=== PATIENT | female | born 1950 | race Caucasian/White ===

== ENCOUNTER → 2023-09-28 08:09 | Outpatient (CLI) | payer OTHER, SELFPAY ==
[2023-09-28 09:15] LABS: Add Manual Diff / Slide Review NO; Basophils Absolute Auto 0 /uL (0-100); Basophils Percent Auto 0.9 % (0-2); Eosinophils Absolute Auto 100 /uL (0-450); Eosinophils Percent Auto 2.4 % (2-4); Hematocrit 39.4 % (36-46); Hemoglobin 13.1 g/dL (12.0-16.0); Lymphocytes Absolute Auto 1400 /uL (1100-4500); Lymphocytes Percent Auto 27.6 % (25-40); Mean Corpuscular HGB Conc 33.4 % (30-36); Mean Corpuscular Hemoglobin 28.3 PG (26-34); Mean Corpuscular Volume 84.9 fL (80-100); Monocytes Absolute Auto 400 /uL (0-900); Monocytes Percent Auto 7.2 % (3-14); Neutrophils Absolute Auto 3200 /uL (1500-7000); Neutrophils Percent Auto 61.9 % (50-75); Platelet Count 270 X10^3/uL (150-400); Red Blood Cell Count 4.64 X10^6/uL (4.0-5.2); Red Cell Distribution Width 13.8 % (11.6-14.8); White Blood Cell Count 5.2 X10^3/uL (4.5-11.0)
[2023-09-28 09:22] LABS: Hemoglobin A1C% w Est Avg Glu 5.6 % (4.0-6.0)
[2023-09-28 09:29] LABS: BUN Creatinine Ratio 33.8 (6-22); Blood Urea Nitrogen 23 mg/dL (7-17); Calcium 9.3 mg/dL (8.4-10.2); Carbon Dioxide 30 mmol/L (22-32); Chloride 108 mmol/L (98-107); Estimated Glomerular Filt Rate > 60 mL/min (>60); Glucose 94 mg/dL (80-110); HEMOLYSIS < 15 (0-50); Potassium 4.6 mmol/L (3.4-5.1); Sodium 140 mmol/L (137-145)
[2023-09-28 09:37] LABS: Prealbumin 22.4 mg/dL (17.6-36.0)
[2023-09-28 09:46] LABS: Vitamin D 25 Hydroxy (D3) 17.9 ng/mL (30.0-100.0)
== END ==
PROVIDERS: PCP Nurse Practitioner Family; Referring Provider Orthopaedic Surgery Adult Reconstructive Orthopaedic Surgery; Visit Provider Orthopaedic Surgery Adult Reconstructive Orthopaedic Surgery
DX: R77.0 Abnormality of albumin (principal); Z01.812 Encounter for preprocedural laboratory examination; E55.9 Vitamin D deficiency, unspecified; R73.9 Hyperglycemia, unspecified
CPT/HCPCS: 36415; 80048; 82040; 82306; 83036; 84134; 85025; 93005

== ENCOUNTER 2023-11-01 06:10 | Day surgery (SDC) | payer OTHER, SELFPAY ==
[2023-10-24 09:28] VITALS: BMI 42.3
[2023-11-01] VITALS (11 sets, daily range): BP systolic 105–150; BP diastolic 61–88; PULSE 67–85; RESP 14–18; TEMP 36.1–36.8; O2SAT 95–99; BMI 42.3
--- NOTE | 2023-11-01 06:00 | DI.RAD.S_ITS ---
PROCEDURE: XR KNEE LT 1TO2V INDICATIONS: TKA TECHNIQUE: 2 view(s) of the knee acquired. COMPARISON: None. FINDINGS: Bones: Patient is status post knee joint arthroplasty. Hardware components are in expected positions. Visualized bony structures are intact. Soft tissues: Overlying postoperative changes are noted. IMPRESSION: Expected post-operative appearance of a knee arthroplasty. Dictated by: Yves Page M.D. on 11/01/2023 at 14:32 Approved by: Yves Page M.D. on 11/01/2023 at 14:32
[2023-11-01] MEDS: ACETAMINOPHEN 325 MG TABLET 975 MG PO (06:49)
[2023-11-01] MEDS: LACTATED RINGERS 1,000 ML 42 ML IV ×2 (06:51→09:00)
--- NOTE | 2023-11-01 07:28 | SUR.OPER ---
Supine on padded OR bed. Pillow under head, arms secured on padded armboards <90 degree abduction. Safety belt across torso. Non-operative leg secured with tape over blanket over lower leg. Operative leg secured in DeMayo/Boy/Nathe positioner. Foam padded brace at thigh of operative leg.
--- NOTE | 2023-11-01 07:36 | PM.PREOP ---
Pre-operative Note Interval Note History & Physical reviewed/Exam performed by Physician: Yes Changes to H&P: No
[2023-11-01] MEDS: CEFAZOLIN 2 GM/100 ML PREMIX 100 ML IV ×3 (08:06→23:32)
[2023-11-01] MEDS: TRANEXAMIC ACID 1,000 MG VIAL 2000 MG INJ (08:13)
[2023-11-01] MEDS: ROPIVACAINE/EPI/CLONIDINE/KET 50 ML SYRINGE INJ (09:07)
--- NOTE | 2023-11-01 10:26 | P.OP_ITS ---
Operative Date/Time/Diagnoses Date of procedure: 11/01/23 Pre-op diagnosis: Left knee osteoarthritis Post-op diagnosis: same Procedure & Clinicians Procedure: Left total knee arthroplasty Same procedure as scheduled: Yes Surgeon: Lemuel Goyal Maternity Floor Supervisor: Asha Zendejas Anesthesia Type: Spinal, Sedation, Peripheral nerve block and Local Operative Notes Tourniquet time (min): 68 Procedure in detail: Left Gap-Balanced Foster Persona Medial-Congruent Primary Total Knee Arthroplasty Implants: * Size 7 Cruciate Retaining Femoral Component * Size D Tibial Component with 14 x 30 stem extension * Size 12 Medial Congruent Polyethylene Insert * Unresurfaced Patella Procedure Summary: This 72-year-old female patient has a BMI of 43 but was otherwise medically optimized from a surgical perspective. I discussed the risks of total knee arthroplasty in the setting of a BMI greater than 40 with her in detail. I explained that the elevated BMI does place her at elevated risk of complicatio ns, of particular importance being periprosthetic joint infection. Given recent recommendations from the [place] [employer] and the [place] [employer] however it is now recommended not to restrict otherwise optimized patients with a BMI greater than 40 from elective total knee arthroplasty based simply on their weight alone. Intraoperatively today she had some medial tightness consistent with her significant varus deformity. This improved with a posterior medial release and later in the procedure I was able to remove a very large posteromedial osteophyte which was likely also tenting the capsule improving the balance of the knee in extension further. I took a minimal cut of 2 mm off the tibia given the size of her deformity. The rotation was set at 4? by the gap meat market manager. I utilized a stem extension as well as a incisional wound VAC device and will prescribe cefadroxil postoperatively for a week given her high BMI I in order to attempt to mitigate the risks associated with this for her. Procedure in Detail: This patient was seen preoperatively and evaluated for knee pain which was refractory to numerous nonoperative treatment modalities. Their pain correlated with radiographic changes demonstrating significant degeneration in the knee joint. The risks and benefits of continued nonoperative management versus o perative management were discussed at length and all of the patient?s questions were answered. Additional educational materials providing further details beyond our discussion in clinic were provided via a publicly available patient education video which included the incidence of medical complications associated with total knee arthroplasty, reasons for revision following total knee arthroplasty, and patient satisfaction rates following total knee arthroplasty. That video can be accessed at [email or web address] . With this understanding of the risks inherent to the procedure, the patient elected to move forward with operative management. Following preoperative optimization, the patient was scheduled for surgery. The patient was met in the preoperative holding area the day of the procedure and all questions were answered. The patient?s nares were swabbed with betadine in order to decolonize them from MRSA. Informed consent was signed and the left limb was marked with indelible ink.? The patient was brought back to the operating room where anesthesia was induced. The patient was transferred to the operating table and all bony prominences were padded. The operative site was prepped and draped in the usual sterile fashion. A second prep stick was utilized following drape placement. The incision was mar ked corresponding to the medial aspect of the tibial tubercle and the patella. Ioban was wrapped circumferentially around the knee. Prior to incision, tranexamic acid and cefazolin were administered. Templating images were displayed. A timeout procedure was performed verifying the patient?s identity, medical comorbidities, allergies, relevant medications, anesthesia type and the surgical plan. All present were in agreement. The assistance of a physician clinical services assistant was required for positioning, room setup, soft tissue retraction and wound closure. Without this assistance, the procedure would have been significantly more challenging and time consuming.?? The tourniquet was inflated prior to incision. I made an anterior incision over the knee, dissected through the subcutaneous tissues and identified the lateral border of the VMO. Medial and lateral soft tissue flaps were developed. A medial parapatellar arthrotomy was performed ensuring that adequate capsular tissue would remain for closure at the conclusion of the procedure. The hip was brought into extension and the medial soft tissues were released off the joint line of the tibia. Tissue overlying the distal anterior femur was released to allow for later assessment for anterior notching but left in place. A portion of the retropatellar fat pad was excised while protecting the patellar tendon. The patella was everted. The patella was not resurfaced. Osteophytes were excised and a lateral facetectomy was performed. The patella was released from its everted position.?? I flexed the knee to 90 degrees and placed retractors to allow access to the notch. An opening reamer was used to gain access to the femoral canal and an intramedullary raciel was introduced into the canal. Diaphyseal fit was obtained in order to allow a distal femoral resection at 5 degrees relative to the anatomic axis, thereby aiming to achieve mechanical alignment of the eventual implant. A +1 resection was planned and assessed using an nando wing. I then made the cut using a sagittal saw. This provided additional access to the femoral notch. The ACL and PCL were excised. Retractors were placed on the lateral and medial tibia. I hyperflexed the knee while externally rotating it to sublux the tibia anteriorly. I placed a PCL retractor posteriorly and used this to provide additional anterior subluxation. The remainder of the PCL root was released. An intramedullary reamer was used in the ACL footprint to provide access to the tibial canal. An extramedullary guide was positioned to allow a resection perpendicular to the anatomic and mechanical axes of the tibia, thereby aiming to achieve mechanical alignment of the eventual implant. A +2 resection off the medial tibia was planned and the tibial cutting jig was pinned in place. I evaluated the cut depth, varus-valgus alignment and slope of the planned tibial resection and deemed them satisfactory. I cut the tibia with a sagittal saw while using retractors to protect the MCL, patellar tendon, and posterolateral structures.? The knee was repositioned in extension and the Fuzion soft tissue balancing gauge was introduced. This demonstrated that there was medial tightness. I performed a posterior medial release releasing capsule off of the posterior medial aspect of the tibia. This improved the balance, with it opening to 6 medially and 8 laterally. When 60 pounds of force was applied to the Fuzion device, the extension gap opened to 11 mm. I moved the knee into 90 degrees of flexion, and the Fuzion device was recalibrated by removing a 9 mm naveen to allow assessment of the flexion gap. The Fuzion was placed perpendicular to the resected surface of the tibia and the resected surface of the distal femur. Sixty pounds of traction was applied to match the tension of the extension gap. This externally rotated the femur to for degrees. Pins were placed in the 10 mm holes. The measured resection guide was placed over the pins to allow sizing. Appropriate sizing was determined and a 4-in-1 block was placed. This was double checked using the Fuzion device to ensure that it would open to an equal distance as the extension gap when the same amount of force was applied. The Fuzion block was also used to assess flexion gap symmetry. An nando wing was used to ensure there would be no anterior notching. Retractors were placed to protect the soft tissues during resection. Captured cuts were performed with a sagittal saw for the anterior and posterior femur as well as the corresponding chamfers.? Trial components were placed and the construct was assessed. Range of motion was assessed by ensuring the knee could achieve full extension and assessing maximum passive knee flexion by elevating the femur and allowing the heel to passively fall towards the buttock. Gap symmetry was assessed by stressing the medial and lateral compartments in both extension and flexion. Laxity was assessed in both extension and flexion and the polyethylene trial was adjusted with shims as necessary. Patellar tracking was assessed with knee flexion. Once satisfied with the construct, I moved forward with implant insertion. Lug holes were drilled in the femur and the tibia was prepped ensuring appropriate sizing and rotation relative to the tibial tubercle.?? The bony ends were irrigated and cement was prepared. Portions of the anterior chamfer cut were utilized as cement restrictors in the femur and tibia where intramedullar rods had been utilized. Cement was placed on the entirety of the undersurface of both the tibial and femoral components. Cement was placed onto the dry tibia and pressurized into the cancellous bone. I impacted the tibial component into place. Cement was removed. The tibia was reduced underneath the femur and placed cement onto the dry surface of the resected femur. I placed the femoral component as well as the intended polyethylene trial. Cement was removed from around the femur. I brought the knee into extension and manually pressurized the construct by pushing on the heel while the cement dried. The knee was bathed in a dilute mixture of betadine and peroxide. A mixture of Ropivacaine, Epinephrine, Clonidine and Toradol was infiltrated throughout the soft tissues into structures including the VMO, patellar tendon, quadriceps tendon, MCL and femoral periosteum. A low adductor canal block was also performed using this mixture unless one had been placed preoperatively by anesthesia. The knee was copiously irrigated with pulse lavage. Once cement had been allowed to dry the knee was again trialed. Range of motion was assessed by ensuring the knee could achieve full extension and assessing maximum passive knee flexion by elevating the femur and allowing the heel to passively fall towards the buttock. Gap symmetry was assessed by stressing the medial and lateral compartments in both extension and flexion. Laxity was assessed in both extension and flexion and the polyethylene trial was adjusted with shims as necessary. Patellar tracking was assessed with knee flexion. The tourniquet was let down and the polyethylene trial was removed. I inspected the knee inspected for excess cement and any residual bleeding. Once hemostasis was achieved I inserted the final polyethylene and ensured appropriate engagement of the dovetail locking mechanism.?? The arthrotomy was closed with absorbable interrupted suture ensuring that this extended to the top of the arthrotomy. This was backed up with running barbed suture throughout the arthrotomy. The skin was closed with 2-0 and 3-0 sutures. Surgical glue was applied and a soft dressing was placed.?The sponge, instrument and needle counts were reported as being correct at the end of the case.??No obvious complications occurred. The patient was transferred from the operating t able back to a stretcher. The patient emerged from anesthesia without difficulty and was taken to the PACU in a stable condition.? Plan for aftercare: * Weightbearing as tolerated * Mobilization as soon as the patient has recovered from anesthesia. If physical therapists are unavailable at the time the patient is ready to ambulate, then nursing staff should help patient ambulate * Aspirin 81 twice per day for DVT prophylaxis * Cefadroxil 500 mg twice per day for 7 days postoperatively for PJI prophylaxis given high BMI * Kirk incisional wound VAC to remain in place until follow up. The batteries will after a week at which time the cord can be removed as it can be used as a normal dressing until the follow up visit * Multimodal pain regimen with no IV opioids ordered * Anticipate discharge home later today * Follow up at [facility] in 2 weeks * Detailed postoperative instructions available at [email or web address]
[2023-11-01] MEDS: ONDANSETRON 4 MG/2 ML INJ IV (11:09)
[2023-11-01] MEDS: METOCLOPRAMIDE 10 MG/2 ML INJ IV (11:09)
[2023-11-01] MEDS: hydrOXYzine 50 MG/ML INJ 25 MG IM (11:17)
[2023-11-01] MEDS: SCOPOLAMINE 1 PATCH TOP (11:37)
[2023-11-01] MEDS: LACTATED RINGERS 1,000 ML 100 ML IV ×2 (12:05→20:10)
[2023-11-01] MEDS: ACETAMINOPHEN 325 MG TABLET 650 MG PO ×3 (12:06→23:26)
[2023-11-01] MEDS: IBUPROFEN 600 MG TABLET PO ×3 (12:09→23:25)
[2023-11-01] MEDS: TRAMADOL 50 MG TABLET PO ×3 (12:10→23:25)
--- NOTE | 2023-11-01 12:55 | PT.IIE ---
Current Diagnoses Unilateral primary osteoarthritis, left knee (11/01/23) Surgery Performed Operation Date: 11/01/23 07:45 Actual Procedures p Left Total Knee Arthroplasty(Left) - Lemuel Goyal MD Surgical History (Last Updated 10/24/23 @ 10:09 by Anuradha Fontanez RN) Hx of bilateral cataract extraction (~2018) Hx of tonsillectomy Medical History (Last Updated 10/24/23 @ 10:09 by Anuradha Fontanez RN) Edema HTN (hypertension) Osteoarthritis Physical Therapy Inpatient Evaluation/Re-Eval M1 PT/OT-IP Prior Functional Status Start: 11/01/23 15:02 Freq: NEEDED Status: Active Protocol: Document 11/01/23 12:55 AB (Rec: 11/01/23 15:19 AB [id number]) Medical Review Prior Functional Status Medical History Reviewed Yes Communication able to make needs known Mobility and Gait pt stated that she was modified independent with all mobilities and ambulation using a SPC Social History Household Members none Living Arrangements House Number of Floors (Floors) One Floor Number of Stairs To Enter/Railing? pt lives in a [id number] house next to her daughter's house 1 step to enter Home Environment High Toilet,Walk in Shower, Built-In Shower Seat Home Equipment Straight Cane,Grab Bars In Shower Additional Social History Comment pt has a standard walker; daughter stated that she will buy a FWW M2 PT-IP Current Condition Start: 11/01/23 15:02 Freq: NEEDED Status: Active Protocol: Document 11/01/23 12:55 AB (Rec: 11/01/23 15:19 AB [id number]) Physical Therapy Current Condition Current Condition Evaluation Date 11/01/23 Treatment Diagnosis s/p L TKA; difficulty in walking Onset Date 11/01/23 M3 PT-IP Subjective Start: 11/01/23 15:02 Freq: NEEDED Status: Active Protocol: Document 11/01/23 12:55 AB (Rec: 11/01/23 15:19 AB [id number]) Subjective Physical Therapy Visit Type Type Initial Evaluation Visit Start Time 12:55 Visit Stop Time 13:42 Number of SPECIAL AGENT IN CHARGE Visits 0 Physical Therapy Visit Comments Patient Comments agreeable to do PT Therapy Pain Assessment Pain Present Pain Present Pain Reported Location left knee Intensity 8 Scale Used increases to 10/10 with movement Pain Behaviors Guarding,Holding Area, Restlessness Pain Management Techniques Apply Cold,Distraction, Elevation,Modification of Treatment,Re-positioning, Timing of Activity with Medications M4 PT-IP Mobility and Gait Start: 11/01/23 15:02 Freq: NEEDED Status: Active Protocol: Document 11/01/23 12:55 AB (Rec: 11/01/23 15:19 AB [id number]) PT-Bed Mobility Assessment Supine to Sit Supine to Sit Minimal Assistance Sit to Supine Sit to Supine Maximum Assistance,1 Person Assistance,Head of Bed Elevated PT-Transfer Assessment Sit to and From Stand Sit to and from Stand Maximum Assistance,2 Person Assistance,Use of Upper Extremities Equipment Transfer Assistive Device Gait Belt,Front Wheeled Walker Orthotic/Prosthetic Devices or Brace: No Comments Mobility Comments pt supine in bed. c/o nausea. daughter in room with pt. obtained PLOF and home set up. pt alert but restless. post -op folder provided and reviewed contents with pt. pt is WBAT on LLE. BP in supine: 138/75 O2 sat 96% and IN: 86 . completed L heel slides prior to mobility and pt presents with increase LLE guarding pt completed supine to sit min A and cues. able to sit on EOB CGA. pt is impulsive. attempted sit to stand but unable despite max A and cues. NAC came in to assist. pt completed sit to stand max A x 2 and max cues. max A x 2 using FWW for standing balance using FWW. (+) L knee buckling/ cued pt for quads activation but pt unable. required max A for PT to stabilize L knee. pt sat back on EOB. agreed to stand again to reposition in bed. max A x 2 for sit to stand. took ~ 4 steps towards HOB ( side stepping) using FWW max A x 2 and max cues. continues to have (+) L knee buckling. pt with decrease LLE motor control and stated that she does not feel/know that L knee is giving out. pt completed sit to supine max A and max cues. positioned pt in bed. call light and table placed within reach. caregiver training set up for tomorrow at 9 am with daughter . Gait Assessment Comments Gait Comments only able to take ~ 4 sdie steps to HOB using FWW max A 2 and max cues PT-Balance Assessment Sitting Balance and Reactions Static Sitting Balance Ability Good Dynamic Sitting Balance Ability Fair Standing Balance and Reactions Static Standing Balance Ability Poor Dynamic Standing Balance Ability Poor Device Used FWW M5 PT-IP Objective Assessments Start: 11/01/23 15:02 Freq: NEEDED Status: Active Protocol: Document 11/01/23 12:55 AB (Rec: 11/01/23 15:19 AB [id number]) Orientation Orientation/Cognition Level of Alertness Alert Orientation Name,Age Safety Awareness Decreased Safety Awareness Memory Description Short Term Impaired Gross Range of Motion Lower Extremity ROM Assessment Left Impaired Impairments L knee flexion: ~ 20 deg L knee extension: ~ 15 deg less to 0 Strength Lower Extremity Strength Assessment Left Impaired Hip 3/5 Knee 3-/5 Coordination Assessment Gross Coordination Gross Coordination WNL Sensation Assessment Sensation Sensation Description Numbness Comments Sensation Comments slight numbness on R foot, full sensation on L foot per pt Muscle Tone Muscle Tone WNL Yes M6 PT-IP Treatment Start: 11/01/23 15:02 Freq: NEEDED Status: Active Protocol: Document 11/01/23 12:55 AB (Rec: 11/01/23 15:19 AB [id number]) Physical Therapy Treatment Exercises Exercises Heel Slides Education Education Provided Precautions,Weight Bearing Status,Post-Op Packet,Safety M7 PT-IP Assessment and Plan Start: 11/01/23 15:02 Freq: NEEDED Status: Active Protocol: Document 11/01/23 12:55 AB (Rec: 11/01/23 15:19 AB [id number]) PT Summary Assessment and Plan Potential Rehabilitation Potential Fair Status of Condition at Evaluation Evolving Summary Impairments Pain,ROM,Strength,Balance, Coordination,Sensation,Tone, Cognition,Bed Mobility, Transfers,Gait,Activity Tolerance Assessment Summary pt is a 72 y/o F s/p L TKA POD 0. pt requiring max A x 2 for sit to stand and presents with (+) L knee buckling in standing requiring max A to stabilize knee. only able to take 4 side steps using 4WW max A x 2 and max cues. pt with c/o 10/10 pain on L knee and is impulsive. Pt also needs max cues and repeated instructions for safety. caregiver training set up for tomorrow at 9 am. Goals Bed Mobility Goal Standby Assistance Transfer Goal Standby Assistance,Front Wheeled Walker Gait Goal Standby Assistance,Front Wheel Walker Gait Distance 100 Other Goals improve bed mobility, transfers, ambulation using LRAD ~ 200 ft mod I up/down 1 step using fWW mod I Days to Meet Goals 5 Frequency of Treatment Frequency Of Treatment Twice a Day Treatment Plan Physical Therapy Treatment Plan Bed Mobility Training,Transfer Training,Gait Training, Therapeutic Exercise,Balance Retraining,Post Op Education, Discharge Planning,Hot or Cold Pack,Neuromuscular Re-ed, Coordination Retraining,Manual Therapy Weight Bearing Status Weight Bearing Status Weight Bear as Tolerated Allowed Weight Bearing Amount (enter % LLE WBAT or #) (%) Recommendations To Nursing Amount of Assist Needed PT/OT Assist Only Discharge Recommendations PT Discharge Recommendations Home with 24/12 Assist Available,Home Health,SNF Rehab,Home vs SNF Equipment Needed for Home Before FWW (daughter stated that she Discharge will purchase one) Transportation Needs at Discharge Private Vehicle,Wheelchair/ Cabulance
[2023-11-01] MEDS: OXYCODONE IR 5 MG TABLET PO ×2 (13:21→20:09)
--- NOTE | 2023-11-01 18:29 | PC.NURSE ---
Dayshift: Pt arrived on floor from PACU nauseous and rating pain 10/10. Pt tolerated oral pain meds which provided adequate relief. After sleeping pt reported nausea improved. Pt got up to bedside commode with 1PA/FWW, voidx1.
[2023-11-01] MEDS: ASPIRIN EC 81 MG TABLET PO (20:09)
[2023-11-01] MEDS: DOCUSATE 100 MG CAPSULE PO (20:09)
--- NOTE | 2023-11-01 20:16 | PM.PN.1 ---
Subjective Subjective Interval history: Patient is seen postoperatively. Resting comfortably. Did not mobilize very well with physical therapy this afternoon. Reports that since her physical therapy session her pain has improved and she has been up to and from the bathroom several times. Dressing is clean dry and intact. Flexion and extension of hallux and ankle are intact. Foot is warm and well perfused. Plan for mobilization tomorrow morning and discharge home Exam Vital Signs (past 8 hours): - 11/01/23 12:30 11/01/23 13:00 11/01/23 17:43 Temperature 97.3 F L Pulse Rate 79 79 85 Respiratory Rate 16 16 16 Blood Pressure 129/87 131/61 107/62 Pulse Oximetry 99 98 95 Oxygen Delivery Method Room Air [facility] Medical History (Updated 10/24/23 @ 10:09 by Anuradha Fontanez RN) Osteoarthritis HTN (hypertension) Edema Surgical History (Updated 10/24/23 @ 10:09 by Anuradha Fontanez RN) Hx of tonsillectomy Hx of bilateral cataract extraction (~2018) Social History household members: none Smoking Status: Never smoker alcohol intake: current Quality VTE Deep Vein Thrombosis/Pulmonary Embolism Present on Admission: No
[2023-11-02] MEDS: OXYCODONE IR 5 MG TABLET PO ×4 (00:05→09:53)
[2023-11-02 06:00] LABS: Hematocrit 31.7 % (36-46); Hemoglobin 10.5 g/dL (12.0-16.0)
[2023-11-02] MEDS: IBUPROFEN 600 MG TABLET PO ×2 (06:12→11:55)
[2023-11-02] MEDS: ACETAMINOPHEN 325 MG TABLET 650 MG PO ×2 (06:13→11:55)
[2023-11-02] MEDS: LACTATED RINGERS 1,000 ML 100 ML IV (06:21)
--- NOTE | 2023-11-02 09:00 | PT.IPTN ---
Current Diagnoses Unilateral primary osteoarthritis, left knee (11/01/23) Surgery Performed Operation Date: 11/01/23 07:45 Actual Procedures p Left Total Knee Arthroplasty(Left) - Lemuel Goyal MD Physical Therapy Treatment Note M2 PT-IP Current Condition Start: 11/01/23 15:02 Freq: NEEDED Status: Active Protocol: Document 11/01/23 12:55 AB (Rec: 11/01/23 15:19 AB [id number]) Physical Therapy Current Condition Current Condition Evaluation Date 11/01/23 Treatment Diagnosis s/p L TKA; difficulty in walking Onset Date 11/01/23 M3 PT-IP Subjective Start: 11/01/23 15:02 Freq: NEEDED Status: Active Protocol: Document 11/02/23 09:59 TS (Rec: 11/02/23 10:32 TS [id number]) Subjective Physical Therapy Visit Type Type Treatment Note Visit Start Time 09:00 Visit Stop Time 09:23 Number of DRYING EQUIPMENT OPERATOR Visits 1 Physical Therapy Visit Comments Patient Comments Pt found resting in bed, daughter in room. Pt reports she feels better this morning and has been up with nursing. She is agreeable to PT. Therapy Pain Assessment Pain When Pain Assessed At Rest Pain Present Pain Present Pain Reported M4 PT-IP Mobility and Gait Start: 11/01/23 15:02 Freq: NEEDED Status: Active Protocol: Document 11/02/23 09:59 TS (Rec: 11/02/23 10:32 TS [id number]) PT-Bed Mobility Assessment Supine to Sit Supine to Sit Standby Assistance Sit to Supine Sit to Supine Standby Assistance Scooting Scooting to Edge of Bed Standby Assistance PT-Transfer Assessment Sit to and From Stand Sit to and from Stand Contact Guard Assistance,1 Person Assistance Equipment Transfer Assistive Device Gait Belt,Front Wheeled Walker Orthotic/Prosthetic Devices or Brace: No Comments Mobility Comments Supine to sit with HOB elevated 15D SBA with BUE support to upright trunk. Daughter donned gait belt prior to standing. STS from bed with FWW CGA from daughter . She leans heavily on FWW to come into standing. She ambulated in the room ~30'SBA with slwo step to gait and heavy UE assist. She performed stairs x2 with use of FWW and Naa from daughter. She has some difficulty stabilizing FWW on step, required assist ot hold down. She performed heel slides, quad sets and ankle pumps supine in bed. Pt was left back in bed, all needs met. Gait Assessment Gait Gait Assistance Required: Standby Assistance Distance (Feet) 30 Assistive Devices Assistive Device Front Wheeled Walker Orthotic/Prosthetic Devices or Brace: No Gait Deviations General Gait Pattern Antalgic,Decreased Stride Length,Decreased Feet Clearance,Step-to Gait Factors Limiting Gait Function Factors Limiting Gait Function Decreased Activity Tolerance, Decreased Strength,Limited Range of Motion,Pain,Poor Balance Comments Gait Comments See mobility comments Stair Climbing Assessment Evaluation Level of Assist On Stairs Minimal Assistance,1 Person Assistance Devices Stair Climbing Assistive Devices Front Wheel Walker Technique/Endurance Stair Climbing Direction Ascend and Descend Stair Climbing Technique Step to Step Number of Steps Climbed 3 Comments Stair Climbing Comments See mobility comments PT-Balance Assessment Sitting Balance and Reactions Static Sitting Balance Ability Good Dynamic Sitting Balance Ability Fair Standing Balance and Reactions Static Standing Balance Ability Fair Dynamic Standing Balance Ability Fair Device Used FWW M5 PT-IP Objective Assessments Start: 11/01/23 15:02 Freq: NEEDED Status: Active Protocol: Document 11/01/23 12:55 AB (Rec: 11/01/23 15:19 AB [id number]) Orientation Orientation/Cognition Level of Alertness Alert Orientation Name,Age Safety Awareness Decreased Safety Awareness Memory Description Short Term Impaired Gross Range of Motion Lower Extremity ROM Assessment Left Impaired Impairments L knee flexion: ~ 20 deg L knee extension: ~ 15 deg less to 0 Strength Lower Extremity Strength Assessment Left Impaired Hip 3/5 Knee 3-/5 Coordination Assessment Gross Coordination Gross Coordination WNL Sensation Assessment Sensation Sensation Description Numbness Comments Sensation Comments slight numbness on R foot, full sensation on L foot per pt Muscle Tone Muscle Tone WNL Yes M6 PT-IP Treatment Start: 11/01/23 15:02 Freq: NEEDED Status: Active Protocol: Document 11/02/23 09:59 TS (Rec: 11/02/23 10:32 TS [id number]) Physical Therapy Treatment Exercises Exercises Ankle Pumps,Quad Sets,Heel Slides Education Education Provided Precautions,Weight Bearing Status,Post-Op Packet,Safety M7 PT-IP Assessment and Plan Start: 11/01/23 15:02 Freq: NEEDED Status: Active Protocol: Document 11/02/23 09:59 TS (Rec: 11/02/23 10:32 TS [id number]) PT Summary Assessment and Plan Potential Rehabilitation Potential Good Summary Impairments Pain,ROM,Strength,Balance, Coordination,Sensation,Tone, Cognition,Bed Mobility, Transfers,Gait,Activity Tolerance Progress Towards Goals Progressing Toward Goals Assessment Summary Idnaia is making good progress with her mobility. She is SBA for all bed mobility this session. She progressed her gait to ~30'SBA with use of FWW. She performed stairs x2 with Naa and with FWW. She has some difficulty stabilizing FWW on step, daughter reported her hsuband will be there to help get her into the house. Her daughter was educated on STS, gait and stair training. PT is recommending home with 24/7 assist and outpatient PT. Goals Bed Mobility Goal Standby Assistance Transfer Goal Standby Assistance,Front Wheeled Walker Gait Goal Standby Assistance,Front Wheel Walker Gait Distance 100 Other Goals improve bed mobility, transfers, ambulation using LRAD ~ 200 ft mod I up/down 1 step using fWW mod I Days to Meet Goals 5 Frequency of Treatment Frequency Of Treatment Twice a Day Treatment Plan Physical Therapy Treatment Plan Bed Mobility Training,Transfer Training,Gait Training, Therapeutic Exercise,Balance Retraining,Post Op Education, Discharge Planning,Hot or Cold Pack,Neuromuscular Re-ed, Coordination Retraining,Manual Therapy Weight Bearing Status Weight Bearing Status Weight Bear as Tolerated Allowed Weight Bearing Amount (enter % LLE WBAT or #) (%) Recommendations To Nursing Amount of Assist Needed 1 Person Assist Discharge Recommendations PT Discharge Recommendations Home with 24/7 Assist Available,Outpatient PT Equipment Needed for Home Before FWW (daughter stated that she Discharge will purchase one) Transportation Needs at Discharge Private Vehicle
[2023-11-02] MEDS: DOCUSATE 100 MG CAPSULE PO (09:53)
[2023-11-02] MEDS: ASPIRIN EC 81 MG TABLET PO (09:53)
--- NOTE | 2023-11-02 10:05 | PM.DS.1 ---
History of Present Illness History of Present Illness Date Patient Seen: 11/02/23 Time Patient Seen: 10:05 Chief complaint: OPB Narrative: Operative Date/Time/Diagnoses Date of procedure: 11/01/23 Pre-op diagnosis: Left knee osteoarthritis Post-op diagnosis: same Procedure & Clinicians Procedure: Left total knee arthroplasty Same procedure as scheduled: Yes Surgeon: Lemuel Goyal Pig Machine Crane Operator: Asha Zendejas Anesthesia Type: Spinal, Sedation, Peripheral nerve block and Local Operative Notes Tourniquet time (min): 68 Procedure in detail: Left Gap-Balanced Foster Persona Medial-Congruent Primary Total Knee Arthroplasty Implants: Size 7 Cruciate Retaining Femoral Component Size D Tibial Component with 14 x 30 stem extension Size 12 Medial Congruent Polyethylene Insert Unresurfaced Patella Discharge Providers Provider Discharge Date: 11/02/23 Primary care physician: AMBERLY Grimes Consults: 11/01/23 06:00 Consult to Anesthesiology Routine Comment: Consulting Provider: Anesthesiologist Reason for consultation: Regional block for post operative pain control Has provider been notified: No 11/01/23 11:46 Consult to Discharge Planning Routine Comment: Consult to Physical Therapy Evaluate & Treat Comment: Physician Instructions: postop TKA protocol Discharge provider: Bernice Bingham PA-C Summary Hospital Course Discharge Diagnosis: Left knee osteoarthritis, s/p left total knee arthroplasty Hospital Course: Ms Carrasquillo's hospital course was unremarkable. On the morning of POD# 1, she was c/o pain after PT and had some trepidation about discharge. She was eating and voiding without difficulty and her pain was well-controlled with oral medication. She felt she could go home once her pain subsided a bit more. PT felt she was safe for discharge home with family. Exam Vital Signs (past 8 hours): Oxygen Delivery Method Room Air Oxygen Flow Rate 0 Narrative Exam Narrative: 5/5 strength in hip flexors, quadriceps, hamstrings, DF, PF, EHL on left. Sensation to light touch intact throughout LLE, calf soft and compressible. [place] over MIS CDI; MIS functioning. Objective Labs 11/02/23 05:43 Labs: Laboratory Results - last 24 hr 11/02/23 05:43 Hgb 10.5 L Hct 31.7 L PFSH Medical History (Updated 10/24/23 @ 10:09 by Anuradha Fontanez RN) Osteoarthritis HTN (hypertension) Edema Surgical History (Updated 10/24/23 @ 10:09 by Anuradha Fontanez RN) Hx of tonsillectomy Hx of bilateral cataract extraction (~2018) Social History household members: none Smoking Status: Never smoker alcohol intake: current Discharge Assessment & Plan Assessment and Plan Assessment: Left knee osteoarthritis, s/p left total knee arthroplasty Plan of Treatment: Discharge home, ASA 81 mg BID for VTE prophylaxis, outpt PT, f/u in office in 2 weeks as scheduled. Discharge Plan Discharge Plan Patient Disposition: Home Provider Discharge Comment: [email or web address] Discharge orders & Medications Discharge Orders: Discharge (Order); Ordered 11/02/23 Ordered By: Bernice Bingham Prescriptions: New meloxicam 15 mg tablet 15 mg PO DAILY Qty: 30 0RF acetaminophen 500 mg capsule 1,000 mg PO Q8HR Qty: 90 1RF aspirin 81 mg capsule 81 mg PO Q12HR 28 Days Qty: 60 0RF oxycodone 5 mg Tablet 5 mg PO Q4-6H PRN (Reason: Mild or moderate pain) Qty: 30 0RF cefadroxil 500 mg capsule 500 mg PO BID 7 Days Qty: 14 0RF Continued lisinopril-hydrochlorothiazide 10-12.5 mg Tablet 1 tab PO DAILY Discontinued ibuprofen 200 mg Tablet 400 mg PO DAILY PRN (Reason: Pain) Follow up/Referrals: Dorcas Altman ARNP [Primary Care Provider] - Lemuel Goyal MD [Physician] - (Follow up at [facility] as scheduled in 2 weeks. ) Diet/Activity/Treatments Diet: Diet as Tolerated Activity: Weightbearing as tolerated, work with outpatient physical therapy to improve strength and range of motion. Cold/Heat Therapy: Ice to the knee for additional pain control Skin/Wound/Dressing Care Report to your healthcare provider any signs of infection, such as:: chills, fever, night sweats, unusual drainage and unusual redness Dressing: Keep dressing intact, clean and dry until 2 week post-op appointment. No soaking the incision site in pools or tubs. No topical ointments or creams to the incision site. Mis incisional wound VAC to remain in place until follow up. The batteries will after a week at which time the cord can be removed as it can be used as a normal dressing until the follow up visit Visit Report/Discharge Packet Instructions: DI for Knee Replacement, DI for Prescription Opioid Use Stand Alone Forms: Patient Portal/API, Surgery Discharge Discharge Data Primary Care Provider: Dorcas Altman Attending Provider: Lemuel Goyal VTE Deep Vein Thrombosis/Pulmonary Embolism Present on Admission: No
--- NOTE | 2023-11-02 10:09 | CM.DANOTE ---
Initial DCP Assessment Visit Note Reviewed EMR and team rounds for status updates. Met with pt and her dtr at bedside to introduce self and role. Pt was found to be resting comfortably in bed, does report having pain, however it is well controlled at this time. Pt lives alone modified independently with a walker and cane in her own home in [place], her dtr is planning to stay with her during her initial recovery phase postoperatively, and will also plan to transport her home later this morning. Payor: Johanna CRISTINA Attending: Dr. Goyal Pt is a 72 year-old F post-op day 1 from a L-knee total arthroplasty surgery. She shares that she has very good support at home through friends and local family, has already set-up OP PT, and has all of the DME at home necessary for safe home recovery needs. Pt/family decline any d/c resources or needs at this time. DCP will continue to follow and assist with any further evolving needs before she departs. Discharge Planning/Care Management CM Discharge Assessment Start: 11/02/23 10:06 Freq: Status: Active Protocol: Document 11/02/23 10:06 DPL (Rec: 11/02/23 10:09 DPL [id number]) Discharge Planning Assessment Assigned Rn Lactation BRADY Hough Advance Directives? No History Provided By Patient,Medical Record Has Patient been admitted in last 30 No days? Prior Living Arrangements House Household Members none Type of transporation used prior to Drives own vehicle admit Independent with ADL's No: modified independent w/FWW Comment N/A Caregiver for Another No Community Services used prior to Physical Therapy admission: DME Already Rented / Owned Elevated Toilet Seat,FWW / Walker,Cane Patient/Family Preference OP PT Therapy Barriers to Discharge No Discharge Plan Home Community Services Physical Therapy Referrals Initiated None needed Whiteboard Updated in Patient Room with Yes name and ext. # of Rn Lactation Review Status In Process Please Provide Date Initial DC 11/02/23 Assessment Was Performed Pre-Anesthesia Assessment Start: 10/24/23 09:28 Freq: Status: Complete Protocol: Document 10/24/23 09:28 CAB (Rec: 10/24/23 10:20 CAB [id number]) Pre-Anesthesia Assessment Patient Information Reviewed Via Phone Assessment Assessment Completed With Patient Diagnostic Results BMP/CMP,CBC,EKG Comment Labs/EKG @ 09/28/23 Primary Care Provider Dorcas Altman Comment Pre-op 10/07/23, clearance form 09/16/23 scanned Seen Specialist in Last 12 Months Yes Specialist Seen Orthopedist Primary Language Urdu Supervisor Fruit Grading Required No Height 170.18 cm Weight 122.47 kg Body Mass Index (BMI) 42.3 Hearing Ability Normal Visual Assist Glasses Dentition Type Teeth, Natural Present,Teeth, Missing Barriers to Learning None Hx Anesthesia Reactions No: Epidural at preganancy did not work Hx Family Anesthesia Reaction No Hx Malignant Hyperthermia No Hx Blood Transfusions No Anesthesia Review Requested No Print Line Operator No alcohol intake current alcohol intake frequency a few times a week Smoking Status Never smoker Substance Use Type does not use Pain Present Pain Reported Musculoskeletal Symptoms Abnormal Gait,Difficulty Walking,Joint Pain History of Falling (Recent or History of Yes ) Patient is completely paralyzed or No completely immobile Prosthesis or Orthotic Device Cane,Front Wheel Walker Mental Status Oriented to own ability Is patient on oxygen? No Does patient have NEWBY/SOB No Hx Sleep Apnea No Currently Taking a Beta Austen No Can You Climb a Flight of Stairs Without No SOB Hx Chest Pain No Hx SOB No Hx Syncope or Dizziness No Anti-Coagulant Therapy No Has a Glove Wrapper No Cardiac Testing No Hx Pacemaker/ICD No Pacemaker Rep Required? No Cardiac Clearance Received No Diet Type At Home Regular Dysphagia No Gastrointestinal Symptoms None Bladder Pattern Incontinent, Stress Urinary Catheter Present No Hx Urinary Self Catheterization No Diabetes No HgbA1C 5.6 Date 09/28/23 Patient No Lactating No Hx Drug Resistant Organism No Presence of External or Internal Medical Yes: Garrett eye IOLs Devices Received a COVID vaccine? Yes Received all doses? Yes Marital Status Lives With none Current Living Arrangements Apartment/Condo Comment Lives on daughter's property Number of Floors (Floors) One Floor Support System Child/Children,Family Does the Patient Have Assistance After Yes: Daughter will care for pt Surgery at [place] Patient Discharge Plan Description Return Home Comment Pt advised possible overnight length of stay per surgeon Feels Safe in Current Environment Yes Been Physically Hurt or Threatened By a No Person in Current Environment Do you have thoughts of harming yourself None or others? Are you currently considering suicide? No Do you have a plan to hurt yourself or No Plan others? Do You Have Any Spiritual Beliefs That No May Affect Your HC Choices? Do You Have Any Cultural Practices That No May Affect Your HC Choices? Comment Suhas Who Can We Speak to About Patient's Care Family, friends Identifying Code for Release of Patient Declines to issue Information Health Care Proxy/Next of Kin Chatnal Dhillon (daughter) Health Care Proxy Emergency Contact Name Chantal Dhillon (daughter) Emergency Contact Advance Directives? No Power of Escrow Assistant No PAC Instructions Assistance for 24 hours post- op,Do not shave/clip surgical site,Durable medical equipment ,Medications to take/avoid, Nasal antibiotic,No ETOH/ petroleum product on skin DOS, NPO,Post-op transportation,Pre -surgical wash,Sensory aids, Sturdy shoes/comfortable clothes,Do not bring valuables and remove jewelry
--- NOTE | 2023-11-02 13:13 | PC.NURSE ---
Pt discharged home at 1223, escorted off floor in wheelchair, accompanied by daughter and hospital staff. IV removed, discharge teaching completed including wound care, new medications and follow up appointments. Questions answered and concerns addressed. Patient left the room with all belongings.
== END 2023-11-02 12:24 | disposition home or self-care (01) ==
LOC: OR 06:11 → AC 06:13
PROVIDERS: PCP Nurse Practitioner Family; Referring Provider Orthopaedic Surgery Adult Reconstructive Orthopaedic Surgery; Visit Provider Orthopaedic Surgery Adult Reconstructive Orthopaedic Surgery
PROC: 0SRD0JZ Replacement of Left Knee Joint with Synthetic Substitute, Open Approach (ICD-10-PCS; CPT 27447; principal; 2023-11-01 07:45)
DX: M17.12 Unilateral primary osteoarthritis, left knee (principal); E66.9 Obesity, unspecified; Z68.41 Body mass index [BMI] 40.0-44.9, adult
CPT/HCPCS: 27447; 36415; 73560; 85014; 85018; 97116; 97162; 97530; C1776; J0690; J1100; J2250; J2405; J2704; J2765; J3010; J3410

== ENCOUNTER 2024-02-14 06:08 | Day surgery (SDC) | payer OTHER, SELFPAY ==
[2023-11-01 11:48] VITALS: BMI 42.3
[2024-02-11 13:28] VITALS: BMI 43.2
[2024-02-14] VITALS (13 sets, daily range): BP systolic 99–158; BP diastolic 60–98; PULSE 61–91; RESP 11–21; TEMP 35.9–37.2; O2SAT 92–98; BMI 43.2; BMI 45.3
--- NOTE | 2024-02-14 06:00 | DI.RAD.S_ITS ---
PROCEDURE: XR KNEE RT 1TO2V INDICATIONS: TKA TECHNIQUE: 2 view(s) of the knee acquired. COMPARISON: [facility], CR, XR KNEE LT 1TO2V, 11/01/2023, 10:50. FINDINGS: Bones: Patient is status post knee joint arthroplasty. Hardware components are in expected positions. Visualized bony structures are intact. Soft tissues: Overlying postoperative changes are noted. IMPRESSION: Expected post-operative appearance of a knee arthroplasty. Dictated by: Christian Stewart M.D. on 02/14/2024 at 17:02 Approved by: Christian Stewart M.D. on 02/14/2024 at 17:02
[2024-02-14] MEDS: SCOPOLAMINE 1 PATCH TOP (07:00)
[2024-02-14] MEDS: MELOXICAM 7.5 MG TABLET 15 MG PO (07:01)
[2024-02-14] MEDS: ACETAMINOPHEN 325 MG TABLET 975 MG PO (07:01)
[2024-02-14] MEDS: LACTATED RINGERS 1,000 ML 84 ML IV ×2 (07:10→09:47)
--- NOTE | 2024-02-14 07:45 | PM.PREOP ---
Pre-operative Note Interval Note History & Physical reviewed/Exam performed by Physician: Yes Changes to H&P: No
[2024-02-14] MEDS: TRANEXAMIC ACID 1,000 MG VIAL 1000 MG INJ ×2 (08:20→09:50)
[2024-02-14] MEDS: CEFAZOLIN VIAL 3 GM in SODIUM CHLORIDE 0.9% 100 ML IV (08:23)
[2024-02-14] MEDS: ROPIVACAINE/EPI/CLONIDINE/KET 50 ML SYRINGE INJ (08:35)
--- NOTE | 2024-02-14 10:24 | PM.OP.1 ---
Operative Date/Time/Diagnoses Date of procedure: 02/14/24 Pre-op diagnosis: Right knee osteoarthritis Post-op diagnosis: same Procedure & Clinicians Procedure: Cemented right total knee arthroplasty Same procedure as scheduled: Yes Surgeon: Lemuel Goyal Backing In Machine Tender: Asha Zendejas Anesthesia Type: Spinal, Sedation, Peripheral nerve block and Local Operative Notes Estimated Blood Loss (mL): 150 Procedure in detail: Right Gap-Balanced Foster Persona Medial-Congruent Primary Total Knee Arthroplasty Implants: Size 6 Cruciate Retaining Femoral Component Size E Tibial Component with 14 x 30 Stubby stem extension Size 16 Medial Congruent Polyethylene Insert Unresurfaced Patella Procedure Summary: This 73-year-old female patient had previously undergone a left total knee arthroplasty performed by myself. During that procedure despite minimal bony cuts she required a 12 mm polyethylene insert. I therefore anticipated a similar issue today and again made minimal cuts, +1 on the distal femur and +2 on the proximal tibia. She still had hyperextension of her knee however even with a 14 mm polyethylene insert. I therefore utilized a 16 mm insert which resolved her hyperextension and still allowed full knee flexion with good gap balanced between the medial and lateral compartments. As was the case during her last total knee arthroplasty I utilized a Stubby stem and a negative pressure incisional wound VAC dressing and will prescribe prophylactic cefadroxil postoperatively given her elevated BMI. Procedure in Detail: This patient was seen preoperatively and evaluated for knee pain which was refractory to numerous nonoperative treatment modalities. Their pain correlated with radiographic changes demonstrating significant degeneration in the knee joint. The risks and benefits of continued nonoperative management versus operative management were discussed at length and all of the patient?s questions were answered. Additional educational materials providing further details beyond our discussion in clinic were provided via a publicly available patient education video which included the incidence of medical complications associated with total knee arthroplasty, reasons for revision following total knee arthroplasty, and patient satisfaction rates following total knee arthroplasty. That video can be accessed at [email or web address] . With this understanding of the risks inherent to the procedure, the patient elected to move forward with operative management. Following preoperative optimization, the patient was scheduled for surgery. The patient was met in the preoperative holding area the day of the procedure and all questions were answered. The patient?s nares were swabbed with betadine in order to decolonize them from MRSA. Informed consent was signed and the right limb was marked with indelible ink.? The patient was brought back to the operating room where anesthesia was induced. The patient was transferred to the operating table and all bony prominences were padded. The operative site was prepped and draped in the usual sterile fashion. A second prep stick was utilized following drape placement. The incision was marked corresponding to the medial aspect of the tibial tubercle and the patella. Ioban was wrapped circumferentially around the knee. Prior to incision, tranexamic acid and cefazolin were administered. Templating images were displayed. A timeout procedure was performed verifying the patient?s identity, medical comorbidities, allergies, relevant medications, anesthesia type and the surgical plan. All present were in agreement. The assistance of a physician accounts receivable assistant was required for positioning, room setup, soft tissue retraction and wound closure. Without this assistance, the procedure would have been significantly more challenging and time consuming.?? The tourniquet was inflated prior to incision. I made an anterior incision over the knee, dissected through the subcutaneous tissues and identified the lateral border of the VMO. Medial and lateral soft tissue flaps were developed. A medial parapatellar arthrotomy was performed ensuring that adequate capsular tissue would remain for closure at the conclusion of the procedure. The hip was brought into extension and the medial soft tissues were released off the joint line of the tibia. Tissue overlying the distal anterior femur was released to allow for later assessment for anterior notching but left in place. A portion of the retropatellar fat pad was excised while protecting the patellar tendon. The patella was everted. The patella was not resurfaced. Osteophytes were excised and a lateral facetectomy was performed. The patella was released from its everted position.?? I flexed the knee to 90 degrees and placed retractors to allow access to the notch. An opening reamer was used to gain access to the femoral canal and an intramedullary raciel was introduced into the canal. Diaphyseal fit was obtained in order to allow a distal femoral resection at 5 degrees relative to the anatomic axis, thereby aiming to achieve mechanical alignment of the eventual implant. A +1 resection was planned and assessed using an nando wing. I then made the cut using a sagittal saw. This provided additional access to the femoral notch. The ACL and PCL were excised. Retractors were placed on the lateral and medial tibia. I hyperflexed the knee while externally rotating it to sublux the tibia anteriorly. I placed a PCL retractor posteriorly and used this to provide additional anterior subluxation. The remainder of the PCL root was released. An intramedullary reamer was used in the ACL footprint to provide access to the tibial canal. An extramedullary guide was positioned to allow a resection perpendicular to the anatomic and mechanical axes of the tibia, thereby aiming to achieve mechanical alignment of the eventual implant. A +2 resection off the medial tibia was planned and the tibial cutting jig was pinned in place. I evaluated the cut depth, varus-valgus alignment and slope of the planned tibial resection and deemed them satisfactory. I cut the tibia with a sagittal saw while using retractors to protect the MCL, patellar tendon, and posterolateral structures.? The knee was repositioned in extension and the Fuzion soft tissue balancing gauge was introduced. This demonstrated that there was excess tension medially relative to laterally. I performed a posterior medial release as well as a medial reduction osteotomy which improved the balance. There was still approximately 1 degree of tightness medially relative to laterally which I was willing to accept given the medial congruent design of my intended polyethylene insert. When 40 pounds of force was applied to the Fuzion device, the extension gap opened to 12 mm. I moved the knee into 90 degrees of flexion, and the Fuzion device was recalibrated by removing a 9 mm naveen to allow assessment of the flexion gap. The Fuzion was placed perpendicular to the resected surface of the tibia and the resected surface of the distal femur. Forty pounds of traction was applied to match the tension of the extension gap. This externally rotated the femur to 7 degrees. Pins were placed in the 12 mm holes. The measured resection guide was placed over the pins to allow sizing. Appropriate sizing was determined and a 4-in-1 block was placed. This was double checked using the Fuzion device to ensure that it would open to an equal distance as the extension gap when the same amount of force was applied. The Fuzion block was also used to assess flexion gap symmetry. An nando wing was used to ensure there would be no anterior notching. Retractors were placed to protect the soft tissues during resection. Captured cuts were performed with a sagittal saw for the anterior and posterior femur as well as the corresponding chamfers.? Trial components were placed and the construct was assessed. Range of motion was assessed by ensuring the knee could achieve full extension and assessing maximum passive knee flexion by elevating the femur and allowing the heel to passively fall towards the buttock. Gap symmetry was assessed by stressing the medial and lateral compartments in both extension and flexion. Laxity was assessed in both extension and flexion and the polyethylene trial was adjusted with shims as necessary. Patellar tracking was assessed with knee flexion. Once satisfied with the construct, I moved forward with implant insertion. Lug holes were drilled in the femur and the tibia was prepped ensuring appropriate sizing and rotation relative to the tibial tubercle.?? The bony ends were irrigated and cement was prepared. Portions of the anterior chamfer cut were utilized as cement restrictors in the femur and tibia where intramedullar rods had been utilized. Cement was placed on the entirety of the undersurface of both the tibial and femoral components. Cement was placed onto the dry tibia and pressurized into the cancellous bone. I impacted the tibial component into place. Cement was removed. The tibia was reduced underneath the femur and placed cement onto the dry surface of the resected femur. I placed the femoral component as well as the intended polyethylene trial. Cement was removed from around the femur. I brought the knee into extension and manually pressurized the construct by pushing on the heel while the cement dried. The knee was bathed in a dilute mixture of betadine and peroxide. A mixture of Ropivacaine, Epinephrine, Clonidine and Toradol was infiltrated throughout the soft tissues into structures including the VMO, patellar tendon, quadriceps tendon, MCL and femoral periosteum. A low adductor canal block was also performed using this mixture unless one had been placed preoperatively by anesthesia. The knee was copiously irrigated with pulse lavage. Once cement had been allowed to dry the knee was again trialed. Range of motion was assessed by ensuring the knee could achieve full extension and assessing maximum passive knee flexion by elevating the femur and allowing the heel to passively fall towards the buttock. Gap symmetry was assessed by stressing the medial and lateral compartments in both extension and flexion. Laxity was assessed in both extension and flexion and the polyethylene trial was adjusted with shims as necessary. Patellar tracking was assessed with knee flexion. The tourniquet was let down and the polyethylene trial was removed. I inspected the knee inspected for excess cement and any residual bleeding. Once hemostasis was achieved I inserted the final polyethylene and ensured appropriate engagement of the dovetail locking mechanism.?? The arthrotomy was closed with absorbable interrupted suture ensuring that this extended to the top of the arthrotomy. This was backed up with running barbed suture throughout the arthrotomy. The skin was closed with 2-0 and 3-0 sutures. Surgical glue was applied and a soft dressing was placed.?The sponge, instrument and needle counts were reported as being correct at the end of the case.??No obvious complications occurred. The patient was transferred from the operating table back to a stretcher. The patient emerged from anesthesia without difficulty and was taken to the PACU in a stable condition.? Plan for aftercare: Weightbearing as tolerated Mobilization as soon as the patient has recovered from anesthesia. If physical therapists are unavailable at the time the patient is ready to ambulate, then nursing staff should help patient ambulate Aspirin 81 twice per day for DVT prophylaxis Multimodal pain regimen with no IV opioids ordered Anticipate discharge home tomorrow. Patient prefers to remain overnight given her significant nausea and vomiting issues she had after her last surgery Kirk incisional wound VAC to remain in place until follow up. The battery will after week at which time the cord can be removed in it can be used a normal dressing until follow up Follow up at [facility] in 2 weeks Detailed postoperative instructions available at [email or web address]
[2024-02-14] MEDS: ONDANSETRON 4 MG/2 ML INJ IV (11:09)
[2024-02-14] MEDS: OXYCODONE IR 5 MG TABLET PO ×3 (11:11→19:36)
[2024-02-14] MEDS: hydrOXYzine 50 MG/ML INJ 25 MG IM (11:12)
--- NOTE | 2024-02-14 11:39 | SUR.PHASEI ---
Pt transferred to room 216 by Raimundo Dee with walker, ice machine on and white belongings bag. SBAR report called to Alice DEE.
[2024-02-14] MEDS: LACTATED RINGERS 1,000 ML 100 ML IV (12:58)
[2024-02-14] MEDS: ACETAMINOPHEN 325 MG TABLET 650 MG PO ×3 (13:00→23:57)
[2024-02-14] MEDS: IBUPROFEN 600 MG TABLET PO ×3 (13:00→23:56)
--- NOTE | 2024-02-14 15:40 | PT.IIE ---
Current Diagnoses Unilateral primary osteoarthritis, right knee (02/14/24) Surgery Performed Operation Date: 02/14/24 07:45 Actual Procedures p Total Knee Arthroplasty(Right) - Lemuel Goyal MD Surgical History (Last Updated 02/11/24 @ 13:28 by Anuradha Fontanez, RN) History of total left knee replacement (11/01/23) Hx of bilateral cataract extraction (~2018) Hx of tonsillectomy Medical History (Last Updated 10/24/23 @ 10:09 by Anuradha Fonatnez RN) Edema HTN (hypertension) Osteoarthritis Physical Therapy Inpatient Evaluation/Re-Eval M1 PT/OT-IP Prior Functional Status Start: 02/14/24 17:04 Freq: NEEDED Status: Active Protocol: Document 02/14/24 15:40 AB (Rec: 02/14/24 17:19 AB [id number]) Medical Review Prior Functional Status Medical History Reviewed Yes Communication able to make needs known Mobility and Gait pt stated that she was modified independent with all mobilities and ambulation using SPC Social History Household Members none Living Arrangements Apartment/Condo Number of Stairs To Enter/Railing? pt lives in a [id number] type home with daughter living next door has 1 step to enter the house Home Environment High Toilet,Walk in Shower, Built-In Shower Seat Home Equipment Front Wheel Walker,Straight Cane,Hand Held Shower,Grab Bars Near Toilet,Grab Bars In Shower Additional Social History Comment pt stated that if needed, her daughter will be able to stay with her and assist pt has a standard walker M2 PT-IP Current Condition Start: 02/14/24 17:04 Freq: NEEDED Status: Active Protocol: Document 02/14/24 15:40 AB (Rec: 02/14/24 17:19 AB [id number]) Physical Therapy Current Condition Current Condition Evaluation Date 02/14/24 Treatment Diagnosis s/p R TKA; difficulty in walking Onset Date 02/14/24 M3 PT-IP Subjective Start: 02/14/24 17:04 Freq: NEEDED Status: Active Protocol: Document 02/14/24 15:40 AB (Rec: 02/14/24 17:19 AB [id number]) Subjective Physical Therapy Visit Type Type Initial Evaluation Visit Start Time 15:40 Visit Stop Time 16:15 Number of SEWER PIPE LAYER HELPER Visits 0 Physical Therapy Visit Comments Patient Comments requested to use the toilet Therapy Pain Assessment Pain When Pain Assessed At Rest Pain Present Pain Present Pain Reported Location left knee Intensity 8 Scale Used >10 with movement Pain Behaviors Facial Grimacing,Guarding, Holding Area Pain Management Techniques Apply Cold,Distraction, Modification of Treatment,Re- positioning,Timing of Activity with Medications M4 PT-IP Mobility and Gait Start: 02/14/24 17:04 Freq: NEEDED Status: Active Protocol: Document 02/14/24 15:40 AB (Rec: 02/14/24 17:19 AB [id number]) PT-Bed Mobility Assessment Supine to Sit Supine to Sit Moderate Assistance,Head of Bed Elevated Sit to Supine Sit to Supine Moderate Assistance PT-Transfer Assessment Sit to and From Stand Sit to and from Stand Moderate Assistance,Maximum Assistance,1 Person Assistance ,2 Person Assistance,Use of Upper Extremities Equipment Transfer Assistive Device Gait Belt,Front Wheeled Walker Orthotic/Prosthetic Devices or Brace: No Transfers Transfer Destination Bedside Commode Transfer Technique Stand Step Pivot Transfer Ability Level of Assist Moderate Assistance,Maximum Assistance,1 Person Assistance ,Use of Upper Extremities Comments Mobility Comments pt supine in bed and requesting to use the toilet. obtained PLOF and home set up from pt. post-op folder provided and reviewed contents . BP: 123/72. pt completed supine to sit max A and max cues. pt needed assist to move RLE to EOB. HOB elevated and pt also used bed rail to assist. pt c/o increase knee pain. stated that she does not think she can walk to the toilet and wants to just use the bedside commode. positioned bedside commode next to pt. pt completed sit to stand max Ax2 and max cues. completed step transfer to bedside commode mod to max A and max cues. pt completed sit to stand from the commode mod A and cues and cues and agreed to walk and completed 3 ft forward/backwards onto the EOB using FWWW mod A and max cues. completed sit to supine mo dA and cues. pt used safety belt as leg spreader operator to assist RLE. positioned pt in bed. call light and table placed within reach. pt agreed to do caregiver training and will contact her daughter. pt requested a 10 am PT session. Gait Assessment Gait Gait Assistance Required: Moderate Assistance,1 Person Assist Distance (Feet) 6 Able to Maintain Weight Bearing Status Yes During Gait Assistive Devices Assistive Device Gait Belt,Front Wheeled Walker Orthotic/Prosthetic Devices or Brace: No Gait Deviations General Gait Pattern Antalgic,Decreased Stride Length,Decreased Feet Clearance,Step-to Gait Factors Limiting Gait Function Factors Limiting Gait Function Decreased Activity Tolerance, Decreased Strength,Difficulty Following Directions,Limited Range of Motion,Pain,Poor Balance,Poor Safety Awareness PT-Balance Assessment Sitting Balance and Reactions Static Sitting Balance Ability Normal Dynamic Sitting Balance Ability Good Standing Balance and Reactions Static Standing Balance Ability Fair Dynamic Standing Balance Ability Poor Device Used FWW M5 PT-IP Objective Assessments Start: 02/14/24 17:04 Freq: NEEDED Status: Active Protocol: Document 02/14/24 15:40 AB (Rec: 02/14/24 17:19 AB [id number]) Orientation Orientation/Cognition Level of Alertness Alert Orientation Name,Place,Situation Language Function Ability No Deficits Noted Safety Awareness Decreased Safety Awareness Memory Description No Deficits Noted Gross Range of Motion Lower Extremity ROM Assessment Right Impaired Impairments R knee flexion: ~ 50 deg with pain limiting ROM Strength Lower Extremity Strength Assessment Right Impaired Hip 3-/5 Knee 3+/5 Coordination Assessment Gross Coordination Gross Coordination WNL Sensation Assessment Sensation Gross Sensation WNL Muscle Tone Muscle Tone WNL Yes M6 PT-IP Treatment Start: 02/14/24 17:04 Freq: NEEDED Status: Active Protocol: Document 02/14/24 15:40 AB (Rec: 02/14/24 17:19 AB [id number]) Physical Therapy Treatment Exercises Exercises Heel Slides Education Education Provided Precautions,Weight Bearing Status,Post-Op Packet,Safety M7 PT-IP Assessment and Plan Start: 02/14/24 17:04 Freq: NEEDED Status: Active Protocol: Document 02/14/24 15:40 AB (Rec: 02/14/24 17:19 [id number]) PT Summary Assessment and Plan Potential Rehabilitation Potential Fair Status of Condition at Evaluation Evolving Summary Impairments Pain,ROM,Strength,Balance, Coordination,Sensation,Tone, Cognition,Bed Mobility, Transfers,Gait,Activity Tolerance Assessment Summary pt is a 73 y/o F s/p R TKA POD 0. pt is WBAT on RLE. pt requiring mod A for bed mobility, mod to max A for transfers and ambulation using FWW. pt with c/o increase R knee pain affecting mobility. pt plans to go home and daughter to assist. caregiver training set up for tomorrow at 10 am. will continue to assess progress. Goals Bed Mobility Goal Independent Transfer Goal Independent,Front Wheeled Walker Gait Goal Independent,Front Wheel Walker Gait Distance 200 Other Goals up/down 1 step using FWW SBA Days to Meet Goals 10 Frequency of Treatment Frequency Of Treatment Twice a Day Treatment Plan Physical Therapy Treatment Plan Bed Mobility Training,Transfer Training,Gait Training, Therapeutic Exercise,Balance Retraining,Post Op Education, Discharge Planning,Hot or Cold Pack,Neuromuscular Re-ed, Coordination Retraining,Manual Therapy Other Recommendations and Next Treatment caregiver trainin/14 @ 10 Focus am stair climbing training Weight Bearing Status Weight Bearing Status Weight Bear as Tolerated Allowed Weight Bearing Amount (enter % RLe WBAT or #) (%) Recommendations To Nursing Amount of Assist Needed 2 Person Assist Discharge Recommendations PT Discharge Recommendations Home with Assistance,Home Health Transportation Needs at Discharge Private Vehicle
[2024-02-14] MEDS: CEFAZOLIN 2 GM/100 ML PREMIX 100 ML IV (16:20)
[2024-02-14] MEDS: DOCUSATE 100 MG CAPSULE PO (20:03)
[2024-02-14] MEDS: ASPIRIN EC 81 MG TABLET PO (20:03)
[2024-02-15] MEDS: CEFAZOLIN 2 GM/100 ML PREMIX 100 ML IV (00:07)
[2024-02-15] MEDS: OXYCODONE IR 5 MG TABLET PO ×2 (03:10→09:10)
[2024-02-15 05:00] LABS: Hematocrit 33.6 % (36-46); Hemoglobin 11.1 g/dL (12.0-16.0)
[2024-02-15] MEDS: ACETAMINOPHEN 325 MG TABLET 650 MG PO ×2 (05:32→11:11)
[2024-02-15] MEDS: IBUPROFEN 600 MG TABLET PO ×2 (05:33→11:11)
--- NOTE | 2024-02-15 08:26 | P.DS_ITS ---
History of Present Illness History of Present Illness Date Patient Seen: 02/15/24 Time Patient Seen: 07:45 Chief complaint: OPB Narrative: This patient was seen preoperatively and evaluated for knee pain which was refractory to numerous nonoperative treatment modalities. Their pain correlated with radiographic changes demonstrating significant degeneration in the knee joint. The risks and benefits of continued nonoperative management versus operative management were discussed at length and all of the patient?s questions were answered. Additional educational materials providing further details beyond our discussion in clinic were provided via a publicly available patient education video which included the incidence of medical complications associated with total knee arthroplasty, reasons for revision following total knee arthroplasty, and patient satisfaction rates following total knee arthroplasty. That video can be accessed at [email or web address].com/[email or web address] . With this understanding of the risks inherent to the procedure, the patient elected to move forward with operative management. Following preoperative optimization, the patient was scheduled for surgery. The patient was met in the preoperative holding area the day of the procedure and all questions were answered. The patient?s nares were swabbed with betadine in order to decolonize them from MRSA. Informed consent was signed and the right limb was marked with indelible ink.? Discharge Providers Provider Date of admission: 02/14/2024 Discharge Date: 02/15/24 Primary care physician: AMBERLY Grimes Consults: 02/14/24 06:00 Consult to Anesthesiology Routine Comment: Consulting Provider: Anesthesiologist Reason for consultation: Regional block for post operative pain control Has provider been notified: No 02/14/24 11:35 Consult to Discharge Planning Routine Comment: Consult to Physical Therapy Evaluate & Treat Comment: Physician Instructions: postop TKA protocol Discharge provider: Sumanth Garnett PA-C Summary Hospital Course Discharge Diagnosis: Right knee osteoarthritis Hospital Course: Procedure: Cemented right total knee arthroplasty Same procedure as scheduled: Yes Surgeon: Lemuel Goyal [facility] Service Worker: Asha Zendejas Anesthesia Type: Spinal, Sedation, Peripheral nerve block and Local Operative Notes Estimated Blood Loss (mL): 150 Procedure in detail: Right Gap-Balanced Foster Persona Medial-Congruent Primary Total Knee Arthroplasty Implants: * Size 6 Cruciate Retaining Femoral Component * Size E Tibial Component with 14 x 30 Stubby stem extension * Size 16 Medial Congruent Polyethylene Insert * Unresurfaced Patella Procedure Summary: This 73-year-old female patient had previously undergone a left total knee arthroplasty performed by myself. During that procedure despite minimal bony cuts she required a 12 mm polyethylene insert. I therefore anticipated a similar issue today and again made minimal cuts, +1 on the distal femur and +2 on the proximal tibia. She still had hyperextension of her knee however even with a 14 mm polyethylene insert. I therefore utilized a 16 mm insert which resolved her hyperextension and still allowed full knee flexion with good gap balanced between the medial and lateral compartments. As was the case during her last total knee arthroplasty I utilized a Stubby stem and a negative pressure incisional wound VAC dressing and will prescribe prophylactic cefadroxil postoperatively given her elevated BMI. Status at Discharge Cognitive/behavioral status at discharge: at baseline, oriented Functional status at discharge: uses cane/walker Overall status at discharge: patient is back to baseline Time Spent with Patient Time spent: Less than 30 minutes Exam Vital Signs (past 8 hours): Oxygen Delivery Method Room Air Oxygen Flow Rate 0 Narrative Exam Narrative: Patient found resting comfortably in bed. Pain is controlled with oral medications. No new numbness or tingling down the right leg. She was able to work with physical therapy yesterday and plans to work with physical therapy this morning and caregiving meeting. She is anticipating being discharged home today. 5/5 strength in hip flexors, quadriceps, hamstrings, DF, PF, EHL bilaterally. Sensation to light touch intact throughout BLE. Calves soft, compressible, nontender. ?Dressing placed intraoperatively CDI. 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 Baseline pain relief with meloxicam 15 mg daily and acetaminophen 500 mg q.4 hours PRN. May take oxycodone 5 mg q.4 hours as needed for breakthrough pain. * Prescribed cefadroxil 500mg bid for prophylactic due to elevated BMI. * Discharge home. Initiate PT within 5-10 days. * Kirk incisional wound VAC to remain in place until follow up. The battery will after week at which time the cord can be removed in it can be used a normal dressing until follow up * Follow up at [facility] in 2 weeks * Detailed postoperative instructions available at [email or web address] Discharge Plan Discharge Plan Patient Disposition: Home Provider Discharge Comment: DC home pending PT clearance. Has post-op meds already Rxed Discharge orders & Medications Discharge Orders: Discharge (Order); Ordered 02/15/24 Ordered By: Sumanth Garnett Prescriptions: Continued lisinopril-hydrochlorothiazide 10-12.5 mg Tablet 1 tab PO DAILY meloxicam 15 mg tablet 15 mg PO DAILY Qty: 30 0RF acetaminophen 500 mg capsule 1,000 mg PO Q8HR Qty: 90 1RF oxycodone 5 mg Tablet 5 mg PO Q4-6H PRN (Reason: Mild or moderate pain) Qty: 30 0RF Follow up/Referrals: Dorcas Altman ARNP [Primary Care Provider] - Diet/Activity/Treatments Diet: Diet as Tolerated Activity: Weightbearing as tolerated. Anterior hip precautions. Cold/Heat Therapy: Ice to hip as needed for pain. Skin/Wound/Dressing Care Report to your healthcare provider any signs of infection, such as:: chills, fever, night sweats, unusual drainage and unusual redness Dressing: May shower. Leave dressing in place until follow up in office. No bathing or otherwise soaking incision. Call the office if the dressing becomes saturated inside. Visit Report/Discharge Packet Instructions: DI for Knee Replacement Stand Alone Forms: Patient Portal/API Discharge Data Primary Care Provider: Dorcas Altman Attending Provider: Lemuel Goyal VTE Deep Vein Thrombosis/Pulmonary Embolism Present on Admission: No
[2024-02-15] MEDS: LACTATED RINGERS 1,000 ML 100 ML IV (09:03)
[2024-02-15] MEDS: polyethylene glycoL 3350 17 GM POWD.PACK PO (09:10)
[2024-02-15] MEDS: DOCUSATE 100 MG CAPSULE PO (09:11)
[2024-02-15] MEDS: ASPIRIN EC 81 MG TABLET PO (09:11)
[2024-02-15 09:30] VITALS: BP 103/43; PULSE 87; RESP 24; TEMP 36.6; O2SAT 98
--- NOTE | 2024-02-15 10:13 | PT.IPTN ---
Current Diagnoses Unilateral primary osteoarthritis, right knee (02/14/24) Surgery Performed Operation Date: 02/14/24 07:45 Actual Procedures p Total Knee Arthroplasty(Right) - Lemuel Goyal MD Physical Therapy Treatment Note M2 PT-IP Current Condition Start: 02/14/24 17:04 Freq: NEEDED Status: Active Protocol: Document 02/14/24 15:40 AB (Rec: 02/14/24 17:19 AB [id number]) Physical Therapy Current Condition Current Condition Evaluation Date 02/14/24 Treatment Diagnosis s/p R TKA; difficulty in walking Onset Date 02/14/24 M3 PT-IP Subjective Start: 02/14/24 17:04 Freq: NEEDED Status: Active Protocol: Document 02/15/24 10:59 TS (Rec: 02/15/24 11:15 TS [id number]) Subjective Physical Therapy Visit Type Type Treatment Note Visit Start Time 10:13 Visit Stop Time 10:40 Notes Daugther present for caregiver training. Number of AIRDOX FITTER Visits 1 Physical Therapy Visit Comments Patient Comments Pt reports pain is 6/10, she is agreeable to PT. Therapy Pain Assessment Pain When Pain Assessed At Rest Pain Present Pain Present Pain Reported Location left knee Intensity 6 Scale Used Numeric (0 - 10) Description Aching Pain Management Techniques Apply Cold,Distraction, Modification of Treatment,Re- positioning,Timing of Activity with Medications M4 PT-IP Mobility and Gait Start: 02/14/24 17:04 Freq: NEEDED Status: Active Protocol: Document 02/15/24 10:59 TS (Rec: 02/15/24 11:15 TS [id number]) PT-Bed Mobility Assessment Sit to Supine Sit to Supine Minimal Assistance,1 Person Assistance PT-Transfer Assessment Sit to and From Stand Sit to and from Stand Moderate Assistance,Maximum Assistance,1 Person Assistance Equipment Transfer Assistive Device Gait Belt,Front Wheeled Walker Orthotic/Prosthetic Devices or Brace: No Comments Mobility Comments BP in sitting 121/63. Daughter dons bait belt prior to mobility. STS from chair MaxA x1 with assist from daughter. She ambulates ~20' in the room CGA with step to gait and heavy use of UE's on FWW. Pt sat on EOB for seated rest break. STS from bed ModA x1 with FWW. She performed x1 steps with use of FWW. Sit to supine into bed Naa for RLE into bed. Pt was left in the bed, all needs met. Gait Assessment Gait Gait Assistance Required: Contact Guard Assist,1 Person Assist Distance (Feet) 20 Able to Maintain Weight Bearing Status Yes During Gait Assistive Devices Assistive Device Gait Belt,Front Wheeled Walker Gait Deviations General Gait Pattern Antalgic,Decreased Stride Length,Decreased Feet Clearance,Step-to Gait Factors Limiting Gait Function Factors Limiting Gait Function Decreased Activity Tolerance, Decreased Strength,Difficulty Following Directions,Limited Range of Motion,Pain,Poor Balance,Poor Safety Awareness Stair Climbing Assessment Evaluation Level of Assist On Stairs Minimal Assistance,1 Person Assistance Devices Stair Climbing Assistive Devices Front Wheel Walker Technique/Endurance Stair Climbing Direction Ascend and Descend Stair Climbing Technique Step to Step Number of Steps Climbed 1 PT-Balance Assessment Sitting Balance and Reactions Static Sitting Balance Ability Normal Dynamic Sitting Balance Ability Good Standing Balance and Reactions Static Standing Balance Ability Fair Dynamic Standing Balance Ability Fair M5 PT-IP Objective Assessments Start: 02/14/24 17:04 Freq: NEEDED Status: Active Protocol: Document 02/14/24 15:40 AB (Rec: 02/14/24 17:19 AB [id number]) Orientation Orientation/Cognition Level of Alertness Alert Orientation Name,Place,Situation Language Function Ability No Deficits Noted Safety Awareness Decreased Safety Awareness Memory Description No Deficits Noted Gross Range of Motion Lower Extremity ROM Assessment Right Impaired Impairments R knee flexion: ~ 50 deg with pain limiting ROM Strength Lower Extremity Strength Assessment Right Impaired Hip 3-/5 Knee 3+/5 Coordination Assessment Gross Coordination Gross Coordination WNL Sensation Assessment Sensation Gross Sensation WNL Muscle Tone Muscle Tone WNL Yes M6 PT-IP Treatment Start: 02/14/24 17:04 Freq: NEEDED Status: Active Protocol: Document 02/15/24 10:59 TS (Rec: 02/15/24 11:15 TS [id number]) Physical Therapy Treatment Education Education Provided Precautions,Weight Bearing Status,Post-Op Packet,Safety M7 PT-IP Assessment and Plan Start: 02/14/24 17:04 Freq: NEEDED Status: Active Protocol: Document 02/15/24 10:59 TS (Rec: 02/15/24 11:15 TS [id number]) PT Summary Assessment and Plan Potential Rehabilitation Potential Fair Summary Impairments Pain,ROM,Strength,Balance, Coordination,Sensation,Tone, Cognition,Bed Mobility, Transfers,Gait,Activity Tolerance Progress Towards Goals Slow Progress due to Pain Assessment Summary Idania made some progress today but continues to be limited by pain. She requires MAx-ModA for STS with FWW. She prgoressed her gait to ~20' with FWW. She performed steps x1 with use of FWW. Daughter was instructed in and performed donning of gait belt , bed mobility, STS and stair training. PT is recommending home with assist. Goals Bed Mobility Goal Independent Transfer Goal Independent,Front Wheeled Walker Gait Goal Independent,Front Wheel Walker Gait Distance 200 Other Goals up/down 1 step using FWW SBA Days to Meet Goals 10 Frequency of Treatment Frequency Of Treatment Twice a Day Treatment Plan Physical Therapy Treatment Plan Bed Mobility Training,Transfer Training,Gait Training, Therapeutic Exercise,Balance Retraining,Post Op Education, Discharge Planning,Hot or Cold Pack,Neuromuscular Re-ed, Coordination Retraining,Manual Therapy Weight Bearing Status Weight Bearing Status Weight Bear as Tolerated Allowed Weight Bearing Amount (enter % RLe WBAT or #) (%) Recommendations To Nursing Amount of Assist Needed 1 Person Assist Discharge Recommendations PT Discharge Recommendations Home with Assistance,Home Health Transportation Needs at Discharge Private Vehicle
[2024-02-15 10:41] VITALS: BP 124/67
--- NOTE | 2024-02-15 11:45 | CM.DANOTE ---
Initial DCP Assessment Note Pt is a 73 yo female, resident of [place], now POD#1 from Rt knee surgery PCP: Dorcas Altman Payer: Johanna CRISTINA Reviewed chart, pt discussed in multidisciplinary rounds this morning. Therapy has cleared pt for return home w/family to assist and pt has planned for home, cg training has been completed with daughter. DC order from Ortho has already been initiated this morning. Met w/patient to discuss [employer]'s recommendation for HH; patient prefers outpatient PT and has transportation available to her. No barriers identified at this time to patient's safe discharge home w/family to assist; close outpatient f/u recommended. CM team will plan to follow clinical course closely in case any DC needs or concerns arise. BRADY Anton Discharge Planning/Care Management CM Discharge Assessment Start: 02/15/24 11:38 Freq: Status: Active Protocol: Document 02/15/24 11:38 LEATHA (Rec: 02/15/24 11:45 [id number]) Discharge Planning Assessment Assigned Automatic Maintainer BRADY Gao DPOA/Assigned Designee Name smitha Thompson Contact Information [phone] Advance Directives? No History Provided By Patient,Medical Record Prior Living Arrangements Apartment/Condo Comment Patient lives in a MIL home with daughter next door Household Members none Type of transporation used prior to Drives own vehicle admit Independent with ADL's Yes Is patient alert and oriented? Yes Patient/Family Preference OP PT Therapy Barriers to Discharge No Discharge Plan Home Transportation Arrangement Family Referrals Initiated None needed
== END 2024-02-15 12:02 | disposition home or self-care (01) ==
LOC: OR 06:08 → AC 06:09
PROVIDERS: PCP Nurse Practitioner Family; Referring Provider Orthopaedic Surgery Adult Reconstructive Orthopaedic Surgery; Visit Provider Orthopaedic Surgery Adult Reconstructive Orthopaedic Surgery
PROC: 0SRC0JZ Replacement of Right Knee Joint with Synthetic Substitute, Open Approach (ICD-10-PCS; CPT 27447; principal; 2024-02-14 07:45)
DX: M17.11 Unilateral primary osteoarthritis, right knee (principal); M25.761 Osteophyte, right knee
CPT/HCPCS: 27447; 36415; 73560; 85014; 85018; 97116; 97162; 97530; C1776; J0690; J1100; J2405; J2704; J3010; J3410